=== PATIENT | male | born 1985 | race Caucasian/White ===

== ENCOUNTER 2017-06-26 09:01 | Emergency (ER) | payer OTHER ==
[~2017-06-26] VITALS: Ht 185.4 cm; Wt 82.0 kg
[~2017-06-26 09:01] MED LIST: ALPR1TAB2 PO
[2017-06-26 09:46] VITALS: BP 153/98
== END 2017-06-26 09:48 | disposition home or self-care (01) ==
LOC: ER 09:01
DX: Z00.8 Encounter for other general examination (principal); F17.200 Nicotine dependence, unspecified, uncomplicated; F10.10 Alcohol abuse, uncomplicated; Z88.0 Allergy status to penicillin
CPT/HCPCS: 99281

== ENCOUNTER 2017-09-23 15:00 | Emergency (ER) | payer OTHER ==
[~2017-09-23] VITALS: Ht 188 cm; Wt 64.5 kg
[2017-09-23 15:03] VITALS: BP 143/97
[2017-09-23] MEDS ORDERED: predniSONE 20 mg tablet PO ONE (15:15)
[2017-09-23] MEDS ORDERED: diphenhydrAMINE 25mg capsule PO ONE (15:15)
[2017-09-23] MEDS ORDERED: triamcinolone acetonide 40mg/ml inj IM ONE (15:15)
[2017-09-23] MEDS ORDERED: TRIA15CR61 TOP (15:17)
[2017-09-23] MEDS ORDERED: HYDR28CR14 TOP (15:17)
[2017-09-23] MEDS ORDERED: DIPH25CA83 PO (15:17)
[2017-09-23] MEDS ORDERED: PRED20TA PO (15:17)
== END 2017-09-23 15:34 | disposition home or self-care (01) ==
LOC: ER 15:01
DX: L23.7 Allergic contact dermatitis due to plants, except food (principal); F17.200 Nicotine dependence, unspecified, uncomplicated; Z88.0 Allergy status to penicillin; Z88.8 Allergy status to other drugs, medicaments and biological substances; Z79.899 Other long term (current) drug therapy
CPT/HCPCS: 96372; 99283; J3301; J7512; Q0163